=== PATIENT | male | born 1940 | race Caucasian/White ===

== ENCOUNTER 2022-03-01 10:19 | Outpatient (CLI) | payer MEDICARE, OTHER, SELFPAY | END 2022-03-01 10:20 | disposition home or self-care (01) | LOC: LKVREF 10:20 | PROVIDERS: PCP Family Medicine; Visit Provider Family Medicine | DX: I10 Essential (primary) hypertension (principal); R53.83 Other fatigue; D64.9 Anemia, unspecified; E78.5 Hyperlipidemia, unspecified; E11.9 Type 2 diabetes mellitus without complications | CPT/HCPCS: 84443 ==

== ENCOUNTER 2022-09-03 10:54 | Outpatient (CLI) | payer MEDICARE, OTHER, SELFPAY | END 2022-09-03 10:55 | disposition home or self-care (01) | PROVIDERS: PCP Family Medicine; Visit Provider Family Medicine | DX: Z00.00 Encounter for general adult medical examination without abnormal findings (principal); D64.9 Anemia, unspecified; R53.83 Other fatigue; E11.9 Type 2 diabetes mellitus without complications; R35.0 Frequency of micturition | CPT/HCPCS: 82043; 82570; 82607; 82728 ==

== ENCOUNTER 2023-03-13 16:07 | Outpatient (CLI) | payer MEDICARE, OTHER, SELFPAY | END 2023-03-13 16:08 | disposition home or self-care (01) | PROVIDERS: PCP Family Medicine; Visit Provider Family Medicine | DX: Z00.00 Encounter for general adult medical examination without abnormal findings (principal); E55.9 Vitamin D deficiency, unspecified; D64.9 Anemia, unspecified; R53.83 Other fatigue; E11.9 Type 2 diabetes mellitus without complications; E78.5 Hyperlipidemia, unspecified; R97.20 Elevated prostate specific antigen [PSA] | CPT/HCPCS: 82306; 82607; 84443 ==

== ENCOUNTER 2023-05-27 12:09 | Outpatient (CLI) | payer MEDICARE, OTHER, SELFPAY | END 2023-05-27 12:10 | disposition home or self-care (01) | LOC: LKVREF 12:10 | PROVIDERS: PCP Family Medicine; Visit Provider Family Medicine | DX: Z00.00 Encounter for general adult medical examination without abnormal findings (principal); E78.5 Hyperlipidemia, unspecified; D64.9 Anemia, unspecified | CPT/HCPCS: 80061 ==

== ENCOUNTER 2023-12-23 13:22 | Outpatient (CLI) | payer MEDICARE, OTHER, SELFPAY ==
--- OUTSIDE RECORDS SUMMARY | 2023-12-23 13:24 | XMS_ITS | Continuity of Care Document ---
Author Name [facility] Organization [facility] Care Team Providers Care Plumbing Designer Name Role Phone [facility] Unavailable Unavailable Problems Combined list of problems from Department of Defense and Veterans Affairs facilities. It does not include entries that were removed or entered in error. Problem Status Onset Date Problem Type Date of Resolution Comments Source upper respiratory infection acute Inactive Condition [facility] Medications Combined list of outpatient medications from Department of Defense and Veterans Affairs facilities.Medications provided include 1) outpatient medications from the last 15 months, and 2) patient-reported medications. Medication Details Route Status Patient Instructions Prescription Expires Prescription Number Last Dispense Date Ordering Provider Order Date Order Qty Source BROMFENAC SODIUM (bromfenac sodium), 0.07 %, DROPS, OPHTHALMIC, BAUSCH & LOMB I, 3 ml DROP BTL Active [id number] 09/26/19 2 4 2023 3 Pharmac y Data Transac tion Service Facilit y BROMFENAC SODIUM (bromfenac sodium), 0.07 %, DROPS, OPHTHALMIC, BAUSCH & LOMB I, 3 ml DROP BTL Active [id number] 10/20/19 2 4 2023 3 Pharmac y Data Transac tion Service Facilit y GATIFLOXACI N (gatifloxac in), 0.5 %, DROPS, OPHTHALMIC, SANDOZ, 2.5 ml DROP BTL Cancele d [id number] : 2023 0 Pharmac y Data Transac tion Service Facilit y GATIFLOXACI N (gatifloxac in), 0.5 %, DROPS, OPHTHALMIC, SANDOZ, 2.5 ml DROP BTL Cancele d [id number] : 2023 0 Pharmac y Data Transac tion Service Facilit y GATIFLOXACI N (gatifloxac in), 0.5 %, DROPS, OPHTHALMIC, SANDOZ, 2.5 ml DROP BTL Active [id number] 09/26/19 2 4 2023 2.5 Pharmac y Data Transac tion Service Facilit y GATIFLOXACI N (gatifloxac in), 0.5 %, DROPS, OPHTHALMIC, SANDOZ, 2.5 ml DROP BTL Active [id number] 10/17/19 2 4 2023 2.5 Pharmac y Data Transac tion Service Facilit y JARDIANCE (EMPAGLIFLO ZIN), 25 MG, TABLET, ORAL, BOEHRINGER ING., 30 ea. BOTTLE Active [id number] 2023 90 Pharmac y Data Transac tion Service Facilit y JARDIANCE (EMPAGLIFLO ZIN), 25 MG, TABLET, ORAL, BOEHRINGER ING., 30 ea. BOTTLE Active [id number] 2023 90 Pharmac y Data Transac tion Service Facilit y JARDIANCE (EMPAGLIFLO ZIN), 25 MG, TABLET, ORAL, BOEHRINGER ING., 30 ea. BOTTLE Active [id number] 3 2022 90 Pharmac y Data Transac tion Service Facilit y METFORMIN HCL (METFORMIN HCL), 1000 MG, TABLET, ORAL, [employer] 500 ea. BOTTLE Active [id number] 3 2022 180 Pharmac y Data Transac tion Service Facilit y METFORMIN HCL (METFORMIN HCL), 1000 MG, TABLET, ORAL, [employer] 500 ea. BOTTLE Active [id number] 4 2023 180 Pharmac y Data Transac tion Service Facilit y PREDNISOLON E ACETATE (PREDNISOLO NE ACETATE), 1%, DROPS SUSP, OPHTHALMIC, PRYOR PHARM, 5 ml DROP BTL Cancele d [id number] : 2023 0 Pharmac y Data Transac tion Service Facilit y PREDNISOLON E ACETATE (PREDNISOLO NE ACETATE), 1%, DROPS SUSP, OPHTHALMIC, PRYOR PHARM, 5 ml DROP BTL Active [id number] 2023 5 Pharmac y Data Transac tion Service Facilit y PREDNISOLON E ACETATE (PREDNISOLO NE ACETATE), 1%, DROPS SUSP, OPHTHALMIC, PRYOR PHARM, 5 ml DROP BTL Active [id number] 2023 5 Pharmac y Data Transac tion Service Facilit y PROLENSA (BROMFENAC SODIUM), 0.07 %, DROPS, OPHTHALMIC, VALEANT, 3 ml DROP BTL Cancele d [id number] : 2023 0 Pharmac y Data Transac tion Service Facilit y PROLENSA (BROMFENAC SODIUM), 0.07 %, DROPS, OPHTHALMIC, VALEANT, 3 ml DROP BTL Cancele d [id number] : 2023 0 Pharmac y Data Transac tion Service Facilit y SIMVASTATIN (simvastati n), 20 MG, TABLET, ORAL, [employer]AT, 1000 ea. BOTTLE Active [id number] 2023 90 Pharmac y Data Transac tion Service Facilit y SIMVASTATIN (simvastati n), 20 MG, TABLET, ORAL, PURACAP LABORAT, 1000 ea. BOTTLE Active [id number] 4 2023 90 Pharmac y Data Transac tion Service Facilit y SIMVASTATIN (simvastati n), 20 MG, TABLET, ORAL, PURACAP LABORAT, 1000 ea. BOTTLE Active [id number] 3 2022 90 Pharmac y Data Transac tion Service Facilit y TAMSULOSIN HCL (TAMSULOSIN HCL), 0.4 MG, CAP.SR 24H, ORAL, ZYDUS PHARMACEU, 1000 ea. BOTTLE Cancele d [id number] : 2023 0 Pharmac y Data Transac tion Service Facilit y TAMSULOSIN HCL (TAMSULOSIN HCL), 0.4 MG, CAP.SR 24H, ORAL, ZYDUS PHARMACEU, 1000 ea. BOTTLE Active [id number] 4 2023 167 Pharmac y Data Transac tion Service Facilit y TAMSULOSIN HCL (TAMSULOSIN HCL), 0.4 MG, CAP.SR 24H, ORAL, ZYDUS PHARMACEU, 1000 ea. BOTTLE Active [id number] 2023 167 Pharmac y Data Transac tion Service Facilit y TAMSULOSIN HCL (TAMSULOSIN HCL), 0.4 MG, CAP.SR 24H, ORAL, ZYDUS PHARMACEU, 1000 ea. BOTTLE Active [id number] 4 2023 180 Pharmac y Data Transac tion Service Facilit y Encounters Combined list of: 1) Encounters from Department of Veterans Affairs facilities going back up to thelast 18 months. 2) Encounters from the Department of Defense facilities going back up to 280 months. Location Location Details Encounter Type Encounter Number Reason For Visit Attending Provider ADM Date DC Date Status Disposition Source [place]([facility] OUTPATIENT [id number] sore throat x's 4 days JACOB ROSSI 08/14 Released w/o Limitations [place] Ulloa(Rehan [facility]) Social History Combined list of available smoking, tobacco, and other social history from Department of Defense and Veterans Affairs facilities. Social History Type Response Date Comment Sour e This section is an empty social history section. DoD
== END 2023-12-23 13:23 | disposition home or self-care (01) ==
PROVIDERS: PCP Family Medicine; Visit Provider Family Medicine
DX: E11.9 Type 2 diabetes mellitus without complications (principal); E55.9 Vitamin D deficiency, unspecified; R53.83 Other fatigue; Z79.4 Long term (current) use of insulin
CPT/HCPCS: 80048; 82043; 82306; 82570

== ENCOUNTER 2024-05-25 13:11 | Outpatient (CLI) | payer MEDICARE, OTHER, SELFPAY | END 2024-05-25 13:12 | disposition home or self-care (01) | PROVIDERS: PCP Family Medicine; Visit Provider Family Medicine | DX: D64.9 Anemia, unspecified (principal); E78.5 Hyperlipidemia, unspecified; R53.83 Other fatigue; E11.9 Type 2 diabetes mellitus without complications; Z79.4 Long term (current) use of insulin | CPT/HCPCS: 80053; 80061; 82607; 82728 ==

== ENCOUNTER 2024-06-24 15:30 | Outpatient (RCR) | payer MEDICARE, OTHER, SELFPAY ==
--- NOTE | 2024-06-03 17:07 | PT.OPE ---
[facility] Eval PT [facility] Outpatient Eval Start: 06/03/24 13:44 Freq: Status: Active Protocol: Document 06/03/24 17:06 ROMERO (Rec: 06/03/24 17:07 CJT [id number]) E-signed By Baldemar Wheeler PT Physical Therapy Outpatient Evaluation Insurance Information Recert Due Date 09/01/24 Insurance Name Medicare B Medical Diagnosis R53.81 - Other malaise W19.XXXA - Unspecified fall, initial encounter Treating Diagnosis Repeated Falls Generalized muscle weakness Referring Quintin Sorto MD Subjective Preferred Name Juan Pablo Subjective Pt presents for evaluation and treatment following a fall in his home in which he could not get up on his own. Pt describes a fall in which he was trying to take off his pants at the end of his night and slipped on a rug and fell to the ground. He was not able to get up. His found him around 2am and his son came over the next morning. Pt denies injury during this event. Pt reports having a few falls this past year. [place] at the airport [place] backwards [place] escal[place] at the airport [place]. And another in which he caught his toe on a door frame while walking into the bathroom. Has been trying to walk on treadmill for 30 minutes a few times a week. Would like to be able to perform about 15-20 push-ups and sit ups. Current Work Status Retired Precautions Therapy Limitations/Systems Review Not Limited Objective Other/Pertinent Objective R hip flexion: 3+/5 MMT R knee flexion: 4+/5 MMT R knee extension: 4+/5 MMT R ankle DF: 4+/5 MMT L hip flexion: 4-/5 MMT L knee flexion: 4+/5 MMT L knee extension: 4+/5 MMT L ankle DF: 4+/5 MMT 4-Stage Balance Test: pt able to complete stages I-III on first attempt; unable to balance on either leg in SL stance greater than 2 seconds TU.7 seconds 5 Times Ilp-fq-Ubexd: 16 seconds 30-Second Wad-ko-Yrzbi: 9 repetitions 6-Minute Walk Test: 1364 ft Assessment Assessment/Impression Juan Pablo is a very pleasant 83 year old male who presents to our clinic for evaluation and treatment of weakness and balance deficits. Pt presents with proximal vs distal weakness in LEs. I did not evaluate pts UE strength this date but will plan to address this at next treatment session . Pt presents with deficits in LE strength and balance (see objective). He will benefit from consistent performance of transfers, as well as balance and strength exercises with focus on proximal muscle strength. The nature of the pts condition was explained and all questions were answered to the pts satisfaction. Skilled PT services are medically necessary to address deficits and return patient to highest level of function. Recommend physical therapy sessions 1/ week for 4 weeks. Pt agrees with this plan. Printout of HEP was given for I completion and pt gives verbal understanding of each exercise . Primary Functional Limitations Balance, transfers, mobility Plan of Care Rehabilitation Potential Good Physical Therapy Goals STG - To be completed in 4 weeks: 1. Pt will improve 30 second Sit to Stand test score to 12 repetitions as indication of improved functional strength and balance to reduce risk of falls. 2. Pt will demo ability to stand Tandem, without use of hands, for at least 30 seconds as indication of improved static balance to reduce risk of falls. LTG - To be completed in 8 weeks: 1. Pt to be I with HEP so that they may I manage progression of symptoms. 2. Pt will demo ability to stand on one leg, without use of hands, for at least 10 seconds as indication of improved static balance to reduce risk of falls. Treatment Plan/Direct Interventions Gait Training,Neuromuscular Re -ed,Self-Care/Home Management, Therapeutic Activities, Therapeutic Exercises Frequency/Duration 1/week for 4 weeks Patient Will Be Discharged From Therapy Completion of LTG(s),Skills Plateau,Independent w/HEP, Independently Progressing Evaluation Billing Untimed Code Treatment Minutes 55 PT Eval No Charge No Complexity Low Certification Information Initial Certification Date 06/03/24 Ending Certification Date 09/01/24 Provider Signature Required Yes Provider Signature Shows Agreement With POC & Medical Necessity Physician NPI Number Write NPI# Here Physician Comment/Change : Physician Signature & Date Requested Please Sign/Date Here
--- OUTSIDE RECORDS SUMMARY | 2024-06-17 14:48 | XMS_ITS | Encounter Summary ---
Author Organization [facility] Address [address] [place] [address] Care Team Providers Care Data Warehouse Analyst Name Role Phone Quintin Hsu MD Primary Care Provider [phone] Ismael Oconnell MD Unavailable [phone] Lola Santos PA-C Unavailable [phone] Lola Santos PA-C Unavailable [phone] Encounter Details Date Type Department Care Team (Late st Contact Info) Description 11/22/[address] [facility] [place] [address] [facility] [address] [place] [phone] Stephania Comer Social History Tobacco Use Types Packs/Day Years Used Date Smoking Tobacco: Never Smokeless Tobacco: Never Alcohol Use Standard Drinks/Week Comments No 0 (1 standard drink = 0.6 oz pur e alcohol) PHQ-2 Answer Date Recorded PHQ-2 Score 0 09/10/2021 Sex and Gender Information Value Date Recorded Sex Assigned at Not on file Legal Sex Male 4:13 AM SERVICES MGR Gender Identity Not on file Sexual Orientation Not on file documented as of this encounter Plan of Treatment Upcoming Encounters Date Type Department Care Team (Late st Contact Info) Description 10/15/2024 1:15 PM CDT Lab [facility] [address] [place] [phone] 10/22/2024 1:00 PM CDT Office Visit [facility] [place] [address] [place] [phone] Lola Santos PA-C [address] [place] [phone] documented as of this encounter Visit Diagnoses Not on filedocumented in this encounter Care Teams Data Warehouse Analyst Relationship Specialty Start Date End Date Quintin Hsu MD PCP - General Family Medicine 05/04/21 Ismael Oconnell MD [address] [place] [phone] Assigned Surgical Provider 05/06/21 Lola Santos PA-C [address] [facility] [facility] [address] [address] [place] [address] Physician Accounting Auditor Urology 10/07/22 Lola Santos PA-C [address] [place] [phone] Assigned Surgical Provider 04/05/23 documented as of this encounter
--- OUTSIDE RECORDS SUMMARY | 2024-06-17 14:48 | XMS_ITS | Clinical Summary ---
Author Organization [facility] Address [address] [place] [address] Care Team Providers Care Side Trimmer Name Role Phone Quintin Hsu MD Primary Care Provider [phone] Lola Santos PA-C Unavailable Lola Santos PA-C Unavailable Allergies No known active allergies Medications simvastatin (ZOCOR) 20 MG tablet Take 20 mg by mouth At Bedtime. Active Blood Glucose Calibration (FREESTYLE CONTROL SOLUTION) LIQDIndications :Type II or unspecified type diabetes mellitus without mention of complication, not stated as uncontrolled,Ty pe 2 diabetes, HbA1c goal < 7% (H) Use to calibrate blood glucose monitor as directed. 1 each prn 3 Active aspirin (ASA) 81 MG EC tablet Take 81 mg by mouth daily Active empagliflozin (JARDIANCE) 10 MG TABS tablet Take 10 mg by mouth daily 1 Active metFORMIN (GLUCOPHAGE) 1000 MG tablet Take 1,000 mg by mouth 2 times daily (with meals) Active glipiZIDE (GLUCOTROL) 5 MG tablet Take 5 mg by mouth 2 times daily (before meals) Active OZEMPIC, 0.25 OR 0.5 MG/DOSE, 2 MG/3ML pen Inject 0.25 mg Subcutaneous once a week 3 Active LANTUS SOLOSTAR 100 UNIT/ML soln Inject 10 Units Subcutaneous at bedtime 3 Active tamsulosin (FLOMAX) 0.4 MG capsuleIndicati ons:Prostate cancer (H),Urinary frequency Take 2 capsules (0.8 mg) by mouth daily. 180 capsule 3 4 Active Active Problems Problem Noted Date Diagnosed Date Urinary frequency 04/02/2023 Diabetes mellitus type 2 in nonobese 04/02/2023 HLD (hyperlipidemia) 04/02/2023 Diverticula of intestine 04/02/2023 Prostate cancer 10/05/2021 Encounters Date Type Department Care Team Description 04/15/2024 1:30 PM CDT Office Visit [facility] [place] [address] [place] [address] Lola Santos PA-C Benign prostatic hyperplasia with incomplete bladder emptying (Primary Dx); Prostate cancer (H); Urinary frequency 04/15/2024 Orders Only [facility] Services - Surgical Specialties Service Line [address] [place] [phone] Lola Santos PA-C Prostate cancer (H) (Primary Dx) 04/15/2024 Travel 04/13/2024 1:30 PM CDT Lab [facility] [address] [facility] [address] [place] [address] Nocturia; Prostate cancer (H) 04/13/2024 Travel from Last 3 Months Family History Medical History Relation Comments Diabetes Mother Relation Status Comments Mother Social History Tobacco Use Types Packs/Day Years Used Date Smoking Tobacco: Never Smokeless Tobacco: Never Tobacco Cessation:Counseling Given: Not Answered Alcohol Use Standard Drinks/Week Comments No 0 (1 standard drink = 0.6 oz pur e alcohol) PHQ-2 Answer Date Recorded PHQ-2 Score 0 09/10/2021 Adolescent Education Answer Date Record ed Getting School Help Needed Not on file 03/23 Sex and Gender Information Value Date Recorded Sex Assigned at Not on file Legal Sex Male 4:13 AM INCIDENT RESPONSE ANALYST Gender Identity Not on file Sexual Orientation Not on file Last Filed Vital Signs Vital Sign Reading Time Taken Comments Blood Pressure 137/77 04/15/2024 1:38 PM CDT Pulse 79 04/15/2024 1:38 PM CDT Temperature - - Respiratory Rate - - Oxygen Saturation 97% 08/30/2021 10:04 AM CDT Inhaled Oxygen Concentration - - Weight 81.6 kg (180 lb) 04/15/2024 1:38 PM CDT Height 180.3 cm (5' 11) 04/15/2024 1:38 PM CDT Body Mass Index 25.1 04/15/2024 1:38 PM CDT Plan of Treatment Upcoming Encounters Date Type Department Care Team (Late st Contact Info) Description 10/15/2024 1:15 PM CDT Lab [facility] [address] [place] [address] 10/22/2024 1:00 PM CDT Office Visit [facility] Urology [facility] [address] [place] [phone] Lola Santos PA-C [address] [facility] [address] [place] [address] Health Maintenance Due Date Last Done Comments ADVANCE CARE PLANNING 1940 ANNUAL REVIEW OF HM ORDERS 1940 BMP 1939 DIABETIC FOOT EXAM 1939 EYE EXAM 1939 LIPID 1939 MICROALBUMIN 1939 DTAP/TDAP/TD IMMUNIZATION (1 - Tdap) 1964 FALL RISK ASSESSMENT 2004 MEDICARE ANNUAL WELLNESS VISIT 2004 A1C 12/31/2011 10/01/2011 RSV VACCINE (1 - 1-dose 75+ series) 2014 Pneumococcal Vaccine: 50+ Years (2 of 2 - PCV) 03/05/2022 03/05/2021 ZOSTER IMMUNIZATION (2 of 2) 07/22/2023 05/27/2023 COVID-19 Vaccine (4 - season) 2024 05/29/2021, 08/15/2020, 07/21/2020 INFLUENZA VACCINE (#1) 2024 3, 05/13/2022, 04/02/2021, Additional history exists PHQ-2 (once per calendar year) 2024 09/10/2021, 08/30/2021, 07/19/2021, Additional history exists HPV IMMUNIZATION Aged Out No longer e ligible based on patient's age to complete this topic MENINGITIS IMMUNIZATION Aged Out No l onger eligible based on patient's age to complete this topic RSV MONOCLONAL ANTIBODY Aged Out No l onger eligible based on patient's age to complete this topic Procedures Procedure Name Priority Date/Time Associated Diagnosis Comments URINALYSIS MACROSCOPIC Routine 04/15/2024 1:33 PM CDT Benign prostatic hyperplasia with incomplete bladder emptying CO MEASURE POST-VOID RESIDUAL URINE/BLADDER CAPACITY, US NON-IMAGING Routine 04/15/2024 Benign prostatic hyperplasia with incomplete bladder emptying PSA TUMOR MARKER Routine 04/13/2024 12:1 8 PM CDT Nocturia Prostate cancer (H) HEMOGLOBIN A1C Routine 10/01/2011 DIAGNOSIS NOT YET DEFINED from Last 3 Months or Most Recently Relevant to Health Maintenance Results * (ABNORMAL) UA without Microscopic [[id number]] (04/15/2024 1:33 PM CDT) Color Urine Yellow Colorless, Straw, Light Yellow, Yellow 04/15/2024 1:40 PM CDT [facility] Appearance Urine Clear Clear 04/15/20 24 1:40 PM CDT [facility] Glucose Urine >=1000(A) Negative mg/dL 04/15/2024 1:40 PM CDT [facility] Bilirubin Urine Negative Negative 4 1:40 PM CDT [facility] Ketones Urine Negative Negative mg/dL 04/15/2024 1:40 PM CDT [facility] Specific Heth Urine 1.010 1.003 - 1.035 04/15/2024 1:40 PM CDT [facility] Blood Urine Negative Negative 04/15/2024 1:40 PM CDT [facility] pH Urine 5.5 5.0 - 7.0 04/15/2024 1:40 PM CDT [facility] Protein Albumin Urine Negative Negative mg/dL 04/15/2024 1:40 PM CDT [facility] Urobilinogen Urine 0.2 0.2, 1.0 E.U./dL 04/15/2024 1:40 PM CDT [facility] Nitrite Urine Negative Negative 04/15/2024 1:40 PM CDT [facility] Leukocyte Esterase Urine Negative Negative 04/15/2024 1:40 PM CDT [facility] Urine MID-STREAM URINE SPECIMEN / Unknown Non-blood Collection / Unknown 04/15/2024 1:33 PM CDT 04/15/2024 1:33 PM CDT Lola Satnos PA-C LAB - URINE ORDERABLE S Final Result [facility] [address] [facility] [address] [phone] * MEASURE POST-VOID RESIDUAL URINE/BLADDER CAPACITY, US NON-IMAGING ([id number]) (04/15/2024) Residual Volume (RV) (External) 215 Lola Santos PA-C PROCEDURES Final Result * PSA tumor marker [[id number]] (04/13/2024 12:18 PM CDT) PSA Tumor Marker 0.29 ng/mL 04/14/20 1:14 AM CDT [facility] Comment:No reference ranges have been established for patients over 80 years. Blood BLOOD SPECIMEN / Unknown Venipuncture / Unknown 04/13/2024 12:18 PM CDT 04/13/2024 12:18 PM CDT Narrative [facility] - 04/14/2024 1:14 AM CDT This result is obtained using the Reza Elecsys total PSA method on the rashida e801 immunoassay analyzer, which is an ultrasensitive method. Results obtained with different assay methods or kits cannot be used interchangeably. An undetectable (<0.01 ng/mL) ultrasensitive prostate-specific antigen (USPSA) concentration after radical prostatectomy is reassuring and may aid in postoperative risk stratification of patients. A detectable USPSA concentration (> or =0.01 ng/mL) after radical prostatectomy (RP) does not necessarily translate into disease progression or recurrence. Interpretation of a detectable USPSA needs to be made in conjunction with other clinicopathologic risk factors. The cutpoint for interpretation of USPSA assays remains controversial and has ranged from 0.01 to 0.05 ng/mL. For example, in a study that included 754 men after RP, a cutpoint of 0.01 ng/mL was an independent predictor of biochemical recurrence (BCR). BCR-free survival at 5 years was 92.4% for patients with an USPSA post-RP of less than 0.01 ng/mL and 56.8% for patients with an USPSA post-RP of 0.01 ng/mL or higher.(1) In the same study a cutoff of 0.03 ng/mL also predicted BCR independent of clinicopathological factors and BCR-free survival at 5 yrs was 90.8% for patients with an USPSA post-RP of less than 0.03 ng/mL and 26.9% for patients with a PSA post-RP of greater or equal to 0.03 ng/mL. (1) 1. Rober LJ, Mariano Z, Duncan DW, et al. Do ultrasensitive prostate specific antigen measurements have a role in predicting long-term biochemical recurrence-free survival in men after radical prostatectomy? J Urol. 2016;195(2):330-336. doi:10.1016/j.juro.2015.08.080 Lola Santos PA-C LAB - BLOOD ORDERABLE S Final Result [facility] [address] [facility] [address] [facility] [place] [address], [facility] * HEMOGLOBIN A1C (10/01/2011) Hemoglobin A1C 8.0@ 4.3 - 6.0 % [facility] Blood specimen (specimen) us Yuan Spivey MD LAB - BLOOD ORDERABLES Final Result [facility] from Last 3 Months or Most Recently Relevant to Health Maintenance Insurance MEDICARE / MEDICARE / MEDICARE / Care Teams Side Trimmer Relationship Specialty Start Date End Date Quintin Hsu MD PCP - General Family Medicine 05/04/21 Lola Santos PA-C [address] [address] Physician Deckhand Sponge Boat Urology 10/07/22 Lola Santos PA-C [address] [place] [id number] Assigned Surgical Provider 04/05/23
--- OUTSIDE RECORDS SUMMARY | 2024-06-17 14:48 | XMS_ITS | Encounter Summary ---
Author Organization [place] Address [address] [place] [address]. [place] [address] Care Team Providers Care Overlock Collar Setter Name Role Phone Quintin Hsu MD Primary Care Provider [phone] Ismael Oconnell MD Unavailable [phone] Lola Santos PA-C Unavailable [phone] Lola Santos PA-C Unavailable [phone] Reason for Visit * Reason Onset Date Comments Appointment 09/21/2021 Encounter Details Date Type Department Care Team (Late st Contact Info) Description 09/21/2021 Telephone [facility] [address] [place] [address] Ismael Oconnell MD [address] [address] Appointment Social History Tobacco Use Types Packs/Day Years Used Date Smoking Tobacco: Never Smokeless Tobacco: Never Alcohol Use Standard Drinks/Week Comments No 0 (1 standard drink = 0.6 oz pur e alcohol) PHQ-2 Answer Date Recorded PHQ-2 Score 0 09/10/2021 Sex and Gender Information Value Date Recorded Sex Assigned at Not on file Legal Sex Male 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 No / Unsure 09/21/2021 1:28 PM CDT documented as of this encounter Miscellaneous Notes * Telephone Encounter - Teresa Kaplan - 09/21/2021 12:28 PM CDT [facility] Call Center Phone Message May a detailed message be left on voicemail: yes Reason for Call: Patient would like to schedule a follow up with Dr. Oconnell to go over his PET Scan results. Scan done on 09/21/21. [facility] tried to schedule a video appt for patient, first available in November 2021. Please reach out to patient. Action Taken: Message routed to: [facility] Urology Travel Screening: Not Applicable documented in this encounter Plan of Treatment Upcoming Encounters Date Type Department Care Team (Late st Contact Info) Description 10/15/2024 1:15 PM CDT Lab [facility] [address] [facility] [address] [place] [phone] 10/22/2024 1:00 PM CDT Office Visit [facility] [address] [facility] [address] [place] [address] Lola Santos PA-C [address] [place] [address] documented as of this encounter Visit Diagnoses Not on filedocumented in this encounter Care Teams Overlock Collar Setter Relationship Specialty Start Date End Date Quintin Hsu MD PCP - General Family Medicine 05/04/21 Ismael Oconnell MD [address] [place] [address] Assigned Surgical Provider 05/06/21 Lola Santos PA-C [address] [facility] [address] [place] [address] Physician Car Salter Urology 10/07/22 Lola Santos PA-C [address] [facility] [address] [place] [address] Assigned Surgical Provider 04/05/23 documented as of this encounter
--- OUTSIDE RECORDS SUMMARY | 2024-06-17 14:48 | XMS_ITS | Referral Summary ---
Author Organization [facility] Address [address] [place] [address]. [place] [address] Care Team Providers Care Buffer Operator Name Role Phone Quintin Hsu MD Primary Care Provider [phone] Lola Santos PA-C Unavailable Lola Santos PA-C Unavailable Encounters Date Type Department Care Team Description 04/15/2024 Orders Only [facility] - Surgical Specialties Service Line [address] [place] [phone] Lola Santos PA-C Prostate cancer (H) (Primary Dx) 04/15/2024 Travel 04/15/2024 1:30 PM CDT Office Visit [facility] [address] [place] [address] Lola Santos PA-C Benign prostatic hyperplasia with incomplete bladder emptying (Primary Dx); Prostate cancer (H); Urinary frequency 04/13/2024 Travel 04/13/2024 1:30 PM CDT Lab [facility] [address] [place] [address] [address] [place] [address] Nocturia; Prostate cancer (H) from Last 3 Months Allergies No known active allergies Medications simvastatin [...] Diverticula of intestine 04/02/2023 Prostate cancer 10/05/2021 Social History Tobacco Use Types Packs/Day Years [...] on file 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 Gender Identity Not on file Sexual Orientation [...] Info) Description 10/15/2024 1:15 PM CDT Lab [facility] [address] [facility] [address] [place] [phone] 10/22/2024 1:00 PM CDT Office Visit [facility] [address] [facility] [address] [place] [phone] Lola Santos PA-C [address] [facility] [address] [place], [place] [address] Procedures Procedure Name Priority Date/Time Associated Diagnosis Comments URINALYSIS MACROSCOPIC Routine 04/15/2024 1:33 PM CDT Benign prostatic hyperplasia with incomplete bladder emptying VT MEASURE POST-VOID RESIDUAL URINE/BLADDER CAPACITY, US NON-IMAGING Routine 04/15/2024 Benign prostatic hyperplasia with incomplete bladder emptying PSA TUMOR MARKER Routine 04/13/2024 12:1 8 PM CDT Nocturia Prostate cancer (H) HEMOGLOBIN A1C Routine 10/01/2011 DIAGNOSIS NOT YET DEFINED from Last 3 Months or Most Recently Relevant to Health Maintenance Results * (ABNORMAL) UA without Microscopic [[id number]] (04/15/2024 1:33 PM CDT) Color Urine Yellow Colorless, Straw, Light Yellow, Yellow 04/15/2024 1:40 PM CDT [facility] Appearance Urine Clear Clear 04/15/20 1:40 PM CDT [facility] Glucose Urine >=1000(A) Negative mg/dL 04/15/2024 1:40 PM CDT [facility] Bilirubin Urine Negative Negative 1:40 PM CDT [facility] Ketones Urine Negative Negative mg/dL 04/15/2024 1:40 PM CDT [facility] Specific [place] Urine 1.010 1.003 - 1.035 04/15/2024 1:40 [...] 1:33 PM CDT 04/15/2024 1:33 PM CDT us Lola Santos PA-C LAB - URINE ORDERABLE S Final Result Performing Organization Address City/State/[facility] Co de Phone Number [facility] [address] [facility] [phone] * MEASURE POST-VOID RESIDUAL URINE/BLADDER CAPACITY, US NON-IMAGING (04169) (04/15/2024) Residual Volume (RV) (External) 215 us Lola Santos PA-C PROCEDURES Final Result * PSA tumor marker [[id number]] (04/13/2024 12:18 PM CDT) PSA Tumor Marker 0.29 ng/mL 04/14/20 1:14 AM CDT [facility] Comment:No reference ranges have been established for patients over 80 years. Blood BLOOD SPECIMEN / Unknown Venipuncture / Unknown 04/13/2024 12:18 PM CDT 04/13/2024 12:18 PM CDT [facility] - 04/14/2024 1:14 AM CDT This [...] ng/mL. (1) 1. Rober LJ, Mariano Z, Song DW, et al. Do ultrasensitive prostate specific antigen measurements have a role in predicting long-term biochemical recurrence-free survival in men after radical prostatectomy? J Urol. 2016;195(2):330-336. doi:10.1016/j.juro.2015.08.080 Lola Santos PA-C LAB - BLOOD ORDERABLE S Final Result [facility] [place] [facility] [address] [facility], [address] [place] [address], [facility] * HEMOGLOBIN A1C (10/01/2011) Hemoglobin A1C 8.0@ 4.3 - 6.0 % [facility] Blood specimen (specimen) Yuan Spivey MD LAB - BLOOD ORDERABLES Final Result MISYS from Last 3 Months or Most Recently Relevant to Health Maintenance Insurance MEDICARE / MEDICARE / MEDICARE / Care Teams Buffer Operator Relationship Specialty Start Date End Date Quintin Hsu MD PCP - General Family Medicine 05/04/21 Lola Santos PA-C [address] [facility] [address] [place], [place] [id number] Physician Public Relations Professional Urology 10/07/22 Lola Santos PA-C [address] [facility] [address] [place], [place] [id number] Assigned Surgical Provider 04/05/23
--- OUTSIDE RECORDS SUMMARY | 2024-06-17 14:48 | XMS_ITS | Clinical Summary ---
Author Organization [facility] Address [address], [place] [address] Care Team Providers Care Child Nurse Name Role Phone Unassigned, Provider Primary Care Provider Unava ilable Source Comments You are receiving this document as you are listed as the primary care provider,follow-up provider, or the patient has been referred to you for consultation.This is in compliance with the Medicare and[facility] EHR Incentive Program,which states Providers who transition their patient to another setting of careor provider of care or refers their patient to another provider of care shouldprovide summary care record for each transition of care or referral. [facility] [place] Allergies No known active allergies Medications Medication Sig Dispensed Refills Start Date End Date Status GLIPIZIDE OR Active metFORMIN (GLUCOPHAGE) 1000 MG tablet Take 1,000 mg by mouth two times a day with meals. Active SIMVASTATIN OR Active aspirin 81 MG tablet Take 81 mg by mouth daily. Active Active Problems No known active problems Immunizations Name Administration Dates Next Due Influenza, Unspecified Formulation 04/09/1996, Social History Tobacco Use Types Packs/Day Years Used Date Smoking Tobacco: Never Smokeless Tobacco: Never Sex and Gender Information Value Date Recorded Sex Assigned at Not on file Gender Identity Not on file Sexual Orientation Not on file Last Filed Vital Signs Vital Sign Reading Time Taken Comments Blood Pressure 120/80 06/01/2018 9:40 AM ADMISSIONS OFFICER Pulse - - Temperature 36.4 C (97.6 F) 06/01/2018 9:40 AM ADMISSIONS OFFICER Respiratory Rate - - Oxygen Saturation - - Inhaled Oxygen Concentration - - Weight 83.8 kg (184 lb 12.8 oz) 06/01/2018 9:40 AM ADMISSIONS OFFICER Height - - Body Mass Index - - Plan of Treatment Health Maintenance Due Date Last Done Comments Medicare Annual Wellness Visit 1939 DTaP/Tdap/Td (1 - Tdap) 1958 Zoster/Shingles (1 of 2) 1989 Pneumococcal 65+ Yrs (1 - PCV) 2004 RSV (1 - 1-dose 75+ series) 2014 COVID-19 Vaccine (3 - season) 2024 08/15/2020, 07/21/2020 Influenza (#1) 2024 03/29/2020, 04/16, 04/02/2018, Additional history exists HepA Aged Out No longer eligi ble based on patient's age to complete this topic HepB Aged Out No longer eligi ble based on patient's age to complete this topic Hib Aged Out No longer eligi ble based on patient's age to complete this topic IPV (Polio) Aged Out No longer eligi ble based on patient's age to complete this topic MCV4 Aged Out No longer eligi ble based on patient's age to complete this topic Care Teams Child Nurse Relationship Specialty Start Date End Date Unassigned, Provider [address] [place] [address] PCP - General 05/19/00
--- OUTSIDE RECORDS SUMMARY | 2024-06-17 14:48 | XMS_ITS | Encounter Summary ---
Author Organization [place] Address [address] [facility] [place] [address] Care Team Providers Care Gearcase Assembler Name Role Phone Quintin Hsu MD Primary Care Provider [phone] Ismael Oconnell MD Unavailable [phone] Lola Santos PA-C Unavailable Lola Santos PA-C Unavailable Reason for Visit * Reason Onset Date Comments Schedule procedure 08/02/2021 Prostate biop sy Encounter Details Date Type Department Care Team (Late st Contact Info) Description 08/02/2021 Telephone [facility] [place] [address] [place] [address] Ismael Oconnell MD [address] [place] [address] Schedule procedure (Prostate biopsy) Social History Tobacco Use Types Packs/Day Years Used Date Smoking Tobacco: Never Smokeless Tobacco: Never Alcohol Use Standard Drinks/Week Comments No 0 (1 standard drink = 0.6 oz pur e alcohol) PHQ-2 Answer Date Recorded PHQ-2 Score 0 07/19/2021 Sex and Gender Information Value Date Recorded Sex Assigned at Not on file 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 No / Unsure 07/18/2021 3:24 PM LAUNDRY MACHINE MECHANIC documented as of this encounter Miscellaneous Notes * Telephone Encounter - Toro Dai - 08/02/2021 2:03 PM CST [facility] Call Center Phone Message May a detailed message be left on voicemail: yes Reason for Call: The patient called to schedule prostate biopsy at [place] location. Please advise. Thank you. Action Taken: Message routed to: Other: CLINIAL POOL Travel Screening: Not Applicable DRY MACHINE MECHANIC documented in this encounter Plan of Treatment Upcoming Encounters Date Type Department Care Team (Late st Contact Info) Description 10/15/2024 1:15 PM CDT Lab [facility] [address] [facility] [address] [place] [address] 10/22/2024 1:00 PM CDT Office Visit [facility] [address] [facility] [address] [place] [address] Lola Santos PA-C [address] [place] [address] documented as of this encounter Visit Diagnoses Not on filedocumented in this encounter Care Teams Gearcase Assembler Relationship Specialty Start Date End Date Quintin Hsu MD PCP - General Family Medicine 05/04/21 Ismael Oconnell MD [address] [place] [address] Assigned Surgical Provider 05/06/21 Lola Santos PA-C [address] [facility] [address] [place] [address] Physician Enchilada Maker Urology 10/07/22 Lola Santos PA-C [address] [facility] [address] [place] [address] Assigned Surgical Provider 04/05/23 documented as of this encounter
--- OUTSIDE RECORDS SUMMARY | 2024-06-17 14:48 | XMS_ITS ---
Author Organization [place] Address [address] [place] [address] Care Team Providers Care Pc Installation Engineer Name Role Phone Quintin Hsu MD Primary Care Provider [phone] Lola Santos PA-C Unavailable Lola Santos PA-C Unavailable Active Problems Problem Noted Date Diagnosed Date Urinary frequency 04/02/2023 Diabetes mellitus type 2 in nonobese 04/02/2023 HLD (hyperlipidemia) 04/02/2023 Diverticula of intestine 04/02/2023 Prostate cancer 10/05/2021 Current Oncology Plans OP ONC Prostate Cancer - Leuprolide Depot (Lupron) EVERY 6 MONTHS* Plan Start Date:10/09/2023 Plan Provider:Lola Santos PA-C Linked Problems Prostate cancer (H) Treatment Medications leuprolide (LUPRON DEPOT) Past Plans No past plan information found. Radiation Treatments * No radiation treatments are documented for this patient in [facility]. Treatments may have been administered in another system.
== END 2024-07-29 14:45 | disposition home or self-care (01) ==
PROVIDERS: PCP Family Medicine; Visit Provider Family Medicine
DX: R53.81 Other malaise (principal); R29.6 Repeated falls; M62.81 Muscle weakness (generalized); W19.XXXA Unspecified fall, initial encounter; Z51.89 Encounter for other specified aftercare
CPT/HCPCS: 97110; 97161

== ENCOUNTER 2025-05-17 11:08 | Outpatient (CLI) | payer MEDICARE, OTHER, SELFPAY | END 2025-05-17 11:09 | disposition home or self-care (01) | LOC: NFLDREF 05-22 00:20 | PROVIDERS: PCP Family Medicine; Referring Provider Family Medicine; Visit Provider Family Medicine | DX: E11.9 Type 2 diabetes mellitus without complications (principal); Z79.4 Long term (current) use of insulin; Z00.00 Encounter for general adult medical examination without abnormal findings | CPT/HCPCS: 80053; 80061; 82043; 82570 ==